=== PATIENT | female | born 1940 | race Caucasian/White ===

== ENCOUNTER 2024-08-09 09:29 | Observation (INO) ==
[2024-08-09 10:09] LABS: ABS Basophils 0.1 10^3/uL (0.0-0.1); ABS Eosinophils 0.4 10^3/uL (0.0-0.5); ABS Lymphocytes 1.2 10^3/uL (1.0-4.8); ABS Neutrophils 10.7 10^3/uL (1.5-7.6); ABS Nucleated RBC 0.01 10^3/ul; Eosinophil % 2.7 %; Hematocrit 31.7 % (35-45); Hemoglobin 10.5 g/dL (11.5-14.3); Lymphocyte % 8.7 %; Mean Corpuscular Hemoglobin 32.6 pg (27-33); Mean Corpuscular Hgb Conc 33.1 g/dL (31-36); Mean Corpuscular Volume 98.3 fL (80-97); Mean Platelet Volume 8.2 fL (7.5-11.2); Nucleated Red Blood Cells % 0.1 %/100WBC (0.0-0.8); Platelet Count 295 10^3/uL (150-450); Red Blood Count 3.23 10^6/uL (3.63-4.92); White Blood Count 13.2 10^3/uL (3.8-11.8)
[2024-08-09 10:22] LABS: INR 1.72 (0.85-1.14)
[2024-08-09 10:47] LABS: Albumin 4.5 g/dL (3.2-5.2); Albumin/Globulin Ratio 1.7 (1-3); Calcium 9.2 mg/dL (8.6-10.3); Creatinine, Serum 1.91 mg/dL (0.51-0.95); Globulin 2.7 g/dL (2-4); Potassium 4.8 mmol/L (3.5-5.0); Total Bilirubin 0.7 mg/dL (0.2-1.0); Total Protein 7.2 g/dL (6.4-8.9); eGFR CKD-EPI 25.6 (>60)
[2024-08-09 11:53] LABS: High Sensitivity Troponin 1 Hr 7 pg/mL (<15)
[2024-08-09] MEDS: Furosemide 40 mg/4 ml IV VIAL IV SLOW PU ONE ×2 (13:42→18:16)
[2024-08-09] MEDS ORDERED: Sulfur Hexaflouride MICROSPHR 25 MG VIAL IV PRN (15:38)
[2024-08-10 06:41] LABS: ABS Eosinophils 0.3 10^3/uL (0.0-0.5); ABS Lymphocytes 1.1 10^3/uL (1.0-4.8); ABS Monocytes 1.2 10^3/uL (0.0-0.9); ABS Neutrophils 8.3 10^3/uL (1.5-7.6); Eosinophil % 2.7 %; Hematocrit 27.6 % (35-45); Hemoglobin 9.2 g/dL (11.5-14.3); Lymphocyte % 9.8 %; Mean Corpuscular Hemoglobin 32.5 pg (27-33); Mean Corpuscular Hgb Conc 33.3 g/dL (31-36); Mean Corpuscular Volume 97.7 fL (80-97); Mean Platelet Volume 8.3 fL (7.5-11.2); Platelet Count 267 10^3/uL (150-450); Red Blood Count 2.83 10^6/uL (3.63-4.92); Red Cell Distribution Width 14.9 % (12-17); White Blood Count 10.8 10^3/uL (3.8-11.8)
[2024-08-10 06:57] LABS: Calcium 9.6 mg/dL (8.6-10.3); Creatinine, Serum 1.8 mg/dL (0.51-0.95); Magnesium 2.2 mg/dL (1.9-2.7); Potassium 4.3 mmol/L (3.5-5.0); eGFR CKD-EPI 27.4 (>60)
[2024-08-10] MEDS: Aspirin EC 81 mg TAB.EC (enteric coated) PO SCH (08:18)
[2024-08-10] MEDS: Furosemide 40 mg/4 ml IV VIAL IV SLOW PU ONE (12:20)
[2024-08-10] MEDS: CMCS:FLUTICAS/UMECLI/VILANT 100-62.5-25 MDI (NF) INH SCH (13:10)
[2024-08-10 15:32] VITALS: BP 132/45
== END 2024-08-10 15:30 | disposition home or self-care (01) ==
LOC: EDHOLD 09:29 → ED 09:29 → SUATTDRO 15:38 → MED 19:54
PROVIDERS: ADMIT Student in an Organized Health Care Education/Training Program; ATTEND Internal Medicine